=== PATIENT | female | born 1995 | race Caucasian/White ===

== ENCOUNTER 2017-03-02 00:35 | Emergency (ER) | payer OTHER ==
--- NOTE | 2017-03-02 00:35 | EDPHY ---
H & P HPI/ROS: HPI CHIEF COMPLAINT: Alcohol Intoxication HISTORY OF PRESENT ILLNESS: Patient 21-year-old female presents emergency room by EMS for altered mental status and intoxication. Per friends she drank multiple shots of liquor this evening possible did cocaine. She presents emergency room very lethargic. Unable to participate in exam. The history review of systems limited to this. She smells of alcohol and has vomit all down her. No reported trauma. Past Medical History: Unknown Past Surgical History: Unknown Social History: Unknown Family History: Unknown ROS REVIEW OF SYSTEMS: Limited due to patient's mental state of intoxication. Exam Constitutional Intoxicated, triage nursing summary reviewed, vital signs reviewed, Sleepy, smells of alcohol Eyes normal conjunctivae and sclera, horizontal beating nystagmus consistent acute alcohol intoxication, otherwise pupils equal and react to light HENT normal inspection, atraumatic, moist mucus membranes, no epistaxis, neck supple/ no meningismus, no raccoon eyes. Respiratory clear to auscultation bilaterally, normal breath sounds, no respiratory distress, no wheezing. Cardiovascular rate normal, regular rhythm, no murmur, no edema, distal pulses normal. Gastrointestinal soft, non-tender, no rebound, no guarding, normal bowel sounds, no distension, no pulsatile mass. Genitourinary no CVA tenderness. Musculoskeletal no midline vertebral tenderness, full range of motion, no calf swelling, no tenderness of extremities, no meningismus, good pulses, neurovascularly intact. Skin pink, warm, & dry, no rash, skin atraumatic. Neurologic sleepy, intoxicated with alcohol,, alert and oriented x 3, AAOx3, moves all 4 extremities equally, motor intact, sensory intact, CN II-XII intact , , normal vision, normal speech. Psychiatric normal mood/affect. Heme/Lymph/Immune no lymphadenopathy. Differential Diagnosis: Includes but is not limited to in a particular order acute alcohol intoxication, alcohol abuse, dehydration, electrolyte abnormality , nausea vomiting from acute alcohol intoxication Medical Decision Making: Plan for this patient hospital monitor, IV establishment IV fluid bolus, Zofran for nausea, check electrolytes and alcohol. Re-evaluation: [id number]: This patient ambulated well throughout the emergency room. She is now clinically sober. She is requesting discharge. She has been here for over 5 hours. Stable gait. Clinically sober. Source: Patient, EMS Constitutional: Initial Vital Signs Temperature (C) 36.9 C 03/02/17 00:44 Heart Rate 79 03/02/17 00:44 Respiratory Rate 16 03/02/17 00:44 Blood Pressure 102/71 03/02/17 00:44 O2 Sat (%) 95 03/02/17 00:44 O2 Delivery Mode Room Air Medical Decision Making - Data Points Laboratory Results: Laboratory Results 03/02/17 00:55 03/02/17 00:55 03/02/17 03/02/17 03/02/17 00:55 00:55 00:55 WBC 6.90 10^3/uL 10^3/uL (3.80-9.50) RBC 3.80 10^6/uL L 10^6/uL (4.18-5.33) Hgb 10.6 g/dL L g/dL (12.6-16.3) Hct 32.1 % L % (38.0-47.0) MCV 84.5 fL fL (81.5-99.8) MCH 27.9 pg pg (27.9-34.1) MCHC 33.0 g/dL g/dL (32.4-36.7) RDW 15.4 % H % (11.5-15.2) Plt Count 290 10^3/uL 10^3/uL (150-400) MPV 9.2 fL fL (8.7-11.7) Neut % (Auto) 44.0 % % (39.3-74.2) Lymph % (Auto) 44.9 % % (15.0-45.0) Story % (Auto) 9.4 % % (4.5-13.0) Eos % (Auto) 0.7 % % (0.6-7.6) Baso % (Auto) 0.7 % % (0.3-1.7) Nucleat RBC Rel Count 0.0 % % (0.0-0.2) Absolute Neuts (auto) 3.03 10^3/uL 10^3/uL (1.70-6.50) Absolute Lymphs (auto) 3.10 10^3/uL H 10^3/uL (1.00-3.00) Absolute Monos (auto) 0.65 10^3/uL 10^3/uL (0.30-0.80) Absolute Eos (auto) 0.05 10^3/uL 10^3/uL (0.03-0.40) Absolute Basos (auto) 0.05 10^3/uL 10^3/uL (0.02-0.10) Absolute Nucleated RBC 0.00 10^3/uL 10^3/uL (0-0.01) Immature Gran % 0.3 % % (0.0-1.1) Immature Gran # 0.02 10^3/uL 10^3/uL (0.00-0.10) Sodium 148 mEq/L H mEq/L (134-144) Potassium 3.7 mEq/L mEq/L (3.5-5.2) Chloride 109 mEq/L mEq/L (97-110) Carbon Dioxide 21 mEq/l L mEq/l (22-31) Anion Gap 18 mEq/L H mEq/L (8-16) BUN 11 mg/dL mg/dL (7-23) Creatinine 0.9 mg/dL mg/dL (0.6-1.0) Estimated GFR > 60 Glucose 102 mg/dL H mg/dL (70-100) Calcium 8.8 mg/dL mg/dL (8.5-10.4) Beta HCG, Qual NEGATIVE Ethyl Alcohol 352 mg/dL H mg/dL (0-10) Medications Given: Discontinued Medications Sodium Chloride (Ns) 1,000 mls @ 0 mls/hr IV ONCE ONE PRN Reason: Wide Open Stop: 03/02/17 00:41 Last Admin: 03/02/17 00:50 Dose: 1,000 mls Sodium Chloride (Ns) 1,000 mls @ 0 mls/hr IV EDNOW ONE; Wide Open PRN Reason: Protocol Stop: 03/02/17 01:50 Last Admin: 03/02/17 02:03 Dose: 1,000 mls Ondansetron HCl (Zofran) 4 mg IVP EDNOW ONE Stop: 03/02/17 00:41 Last Admin: 03/02/17 00:50 Dose: 4 mg Departure - Departure Disposition: Home, Routine, Self-Care Clinical Impression: Alcoholic intoxication Qualifiers: Complication of substance-induced condition: uncomplicated Qualified Code(s): F10.920 - Alcohol use, unspecified with intoxication, uncomplicated Condition: Fair Instructions: Alcohol Intoxication (ED), Abuse of Alcohol (ED) Referrals: Patient,NotPresent [Primary Care Provider] - As per Instructions
[2017-03-02] MEDS ORDERED: NS 1,000 ML IV ONE ×2 (00:40→01:49)
[2017-03-02] MEDS ORDERED: ONDANSETRON 4 MG/2 ML VIAL IVP ONE (00:40)
[2017-03-02 01:03] LABS: % IMMATURE GRANULYOCYTES 0.3 % (0.0-1.1); ABSOLUTE IMMATURE GRANULOCYTES 0.02 10^3/uL (0.00-0.10); ADD DIFF? NO; ADD MORPH? NO; ADD SCAN? NO; ATYPICAL LYMPHOCYTE FLAG 10 (0-99); FRAGMENT RBC FLAG 0 (0-99); HEMATOCRIT 32.1 % (38.0-47.0); HEMOGLOBIN 10.6 g/dL (12.6-16.3); LEFT SHIFT FLG 0 (0-99); LIPEMIA HEMOLYSIS FLAG 80 (0-99); MEAN CELL HEMOGLOBIN 27.9 pg (27.9-34.1); MEAN CELL VOLUME 84.5 fL (81.5-99.8); MEAN PLATELET VOLUME 9.2 fL (8.7-11.7); PLATELET CLUMPS FLAG 0 (0-99); PLATELET COUNT 290 10^3/uL (150-400); RED CELL DISTRIBUTION WIDTH 15.4 % (11.5-15.2)
[2017-03-02 02:01] LABS: ANION GAP 18 mEq/L (8-16); CALCIUM 8.8 mg/dL (8.5-10.4); CARBON DIOXIDE 21 mEq/l (22-31); CHLORIDE 109 mEq/L (97-110); CREATININE 0.9 mg/dL (0.6-1.0); GLOMERULAR FILTRATION RATE > 60; GLUCOSE 102 mg/dL (70-100); POTASSIUM 3.7 mEq/L (3.5-5.2); SODIUM 148 mEq/L (134-144)
[2017-03-02 02:08] LABS: ETHANOL SERUM 352 mg/dL (0-10)
[2017-03-02 06:47] VITALS: BP 108/65; PULSE 76; RESP 18; TEMP 97.9; O2SAT 96
== END 2017-03-02 06:15 | disposition home or self-care (01) ==
LOC: EDUNIT#
PROC: 3E0337Z Introduction of Electrolytic and Water Balance Substance into Peripheral Vein, Percutaneous Approach (ICD-10-PCS; principal; 2017-03-02)
DX: F10.920 Alcohol use, unspecified with intoxication, uncomplicated (principal); E86.9 Volume depletion, unspecified
CPT/HCPCS: 96374; G0480; J2405